=== PATIENT | female | born 1970 | race Caucasian/White ===

== ENCOUNTER 2017-06-14 14:09 | Emergency (ER) | payer OTHER ==
--- NOTE | 2017-06-14 15:55 | EDPHY ---
H & P Stated Complaint: hx PNA on zithromax increasing dyspnea hurts in chest with breathing Time Seen by Provider: 06/14/17 15:53 HPI/ROS: HPI: This is a 47-year-old female who presents with Chief Complaint: hx PNA on Zithromax increasing dyspnea hurts in chest with breathing Location: chest Quality: Congestion Duration: 2 weeks Signs and Symptoms: no shortness of breath at rest, no shortness of breath on exertion, + cough, no chest pain, no palpitations, no lower extremity edema, no wheezing, no orthopnea, no paroxysmal nocturnal dyspnea, no fever, no injury/ trauma, no hemoptysis, no carpal pedal spasms Timing: Worsening Severity: Moderate Context: Patient is generally healthy, no history of lung disease, presents with complaints of chest congestion that has been worsening over the last 2 weeks. She was seen by her primary care provider on June 02; diagnosed with bronchitis and given a Z-Antonio. On the day she had no improvement and return to her primary care provider on June 08. At that time they did blood work that showed community-acquired pneumonia. Patient was again started on azithromycin this time a longer course. She reports that the cough is no longer productive but she does have some discomfort with coughing episodes accompanied by fatigue. She denies any fever/lower extremity edema/neck stiffness/sinus congestion/headache/body aches. Patient reports that her travel to [facility] approximately 3 weeks prior to her getting sick and had a similar illness. She reports that her right lower chest feels heavy; nonradiating in nature and worsened with a deep breath or coughing episodes. LMP 2-3 weeks. Modifying Factors: See above Comment: ROS: see HPI Constitutional: No fever, no chills, no weight loss Eyes: No blurred vision Respiratory: No shortness of breath, no cough Cardiovascular: No chest pain, no palpitations, no lower extremity edema Gastrointestinal: No nausea, no vomiting, no diarrhea Genitourinary: No dysuria Extremities: No myalgias Neurologic: No weakness, no numbness Skin: No rashes Hematologic: No bruising, no bleeding MEDICAL/SURGICAL/SOCIAL HISTORY: Medical/surgical history: LUMBAR MICRODISCECTOMY L4-5 ?R ARM TENDONITIS, OCCASIONAL "LAZY EYE", NEW AFIB 05/20 ?, ENDOMETRIOSIS SURG, SINUS SURG, VAG SURG Surgical history: Denies Social history: . CONSTITUTIONAL: Well-developed, well-nourished middle-aged white female, at bedside, awake and alert, no obvious distress HEENT: Atraumatic and normocephalic, PERRL, EOMI. Tympanic membranes clear. Oropharynx clear, no exudate and moist pink mucosa. Airway patent. No lymphadenopathy. No meningismus. Cardiovascular: Normal S1/S2, regular rate, regular rhythm, without murmur rub or gallop. PULMONARY/CHEST: Symmetrical and nontender. Clear to auscultation bilaterally. Good air movement. No accessory muscle usage. ABDOMEN: Soft, nondistended, nontender, no rebound, no guarding, no peritoneal signs, no masses or organomegaly. No CVAT. EXTREMITIES: 2/2 pulses, strength 5/5, no deformities, no clubbing, no cyanosis or edema. Negative Homans side. No palpable cords. NEUROLOGICAL: no focal neuro deficits. GCS 15. SKIN: Warm and dry, no erythema. no rash. Good capillary refill. Source: Patient Exam Limitations: No limitations - Personal History LMP (Females 10-55): 22-28 Days Ago Current Tetanus/Diphtheria Vaccine: Yes - Medical/Surgical History Hx Asthma: No Hx Chronic Respiratory Disease: No Hx Diabetes: No Hx Cardiac Disease: No Hx Renal Disease: No Hx Cirrhosis: No Hx Alcoholism: No Hx HIV/AIDS: No Hx Splenectomy or Spleen Trauma: No Other PMH: LUMBAR MICRODISCECTOMY L4-5. ?R ARM TENDONITIS, OCCAS "LAZY EYE", NEW AFIB / ?, ENDOMETRIOSIS SURG, SINUS SURG, VAG SURG - Social History Smoking Status: Never smoked Constitutional: Initial Vital Signs Temperature (C) 36.7 C 06/14/17 14:22 Heart Rate 65 06/14/17 14:22 Respiratory Rate 18 06/14/17 14:22 Blood Pressure 137/80 H 06/14/17 14:22 O2 Sat (%) 100 06/14/17 14:22 O2 Delivery Mode Room Air Allergies/Adverse Reactions: aspirin Allergy (Verified 06/14/17 14:21) NSAIDS (Non-Steroidal Anti-Inflamma Allergy (Verified 06/14/17 14:21) Home Medications: Medication Instructions Recorded Azithromycin 06/14/17 levOFLOXACIN [levAQUIN (*)] 750 mg PO DAILY #5 tab 06/14/17 predniSONE [predniSONE TAPER] 10 mg PO DAILY 6 Days ea 06/14/17 Medical Decision Making - Diagnostics Imaging Results: Imaging Impressions Chest X-Ray 06/14/17 16:14 Impression: Normal. If there is progression of the patient's symptoms, consider short-term repeat chest radiography. ED Course/Re-evaluation: Labs, chest x-ray, oral medications ordered Vital signs reviewed upon arrival and stable. No systemic signs. Wells criteria is low for pulmonary embolism. Will add D-dimer to laboratory findings. 1647: Chest x-ray reviewed via PACs and shows no opacity, no effusion, no pneumothorax. + bronchitis changes noted 1720: Labs reviewed and grossly unremarkable including no signs of pulmonary embolism/ACS Will treat as bacterial bronchitis. Decision to stop azithromycin and start Levaquin. Also add steroid taper. This patient was seen under the supervision of my secondary supervising physician. I evaluated care for this patient independently. Differential Diagnosis: Shortness of breath including but not limited to pulmonary infectious process, asthma, pulmonary embolus and congestive heart failure. - Data Points Laboratory Results: Laboratory Results 06/14/17 16:40 06/14/17 16:40 06/14/17 06/14/17 06/14/17 16:40 16:40 16:40 WBC 8.11 10^3/uL 10^3/uL (3.80-9.50) RBC 4.35 10^6/uL 10^6/uL (4.18-5.33) Hgb 14.3 g/dL g/dL (12.6-16.3) Hct 41.5 % % (38.0-47.0) MCV 95.4 fL fL (81.5-99.8) MCH 32.9 pg pg (27.9-34.1) MCHC 34.5 g/dL g/dL (32.4-36.7) RDW 12.2 % % (11.5-15.2) Plt Count 231 10^3/uL 10^3/uL (150-400) MPV 10.1 fL fL (8.7-11.7) Neut % (Auto) 63.9 % % (39.3-74.2) Lymph % (Auto) 24.3 % % (15.0-45.0) Brantley % (Auto) 6.5 % % (4.5-13.0) Eos % (Auto) 4.2 % % (0.6-7.6) Baso % (Auto) 0.7 % % (0.3-1.7) Nucleat RBC Rel Count 0.0 % % (0.0-0.2) Absolute Neuts (auto) 5.18 10^3/uL 10^3/uL (1.70-6.50) Absolute Lymphs (auto) 1.97 10^3/uL 10^3/uL (1.00-3.00) Absolute Monos (auto) 0.53 10^3/uL 10^3/uL (0.30-0.80) Absolute Eos (auto) 0.34 10^3/uL 10^3/uL (0.03-0.40) Absolute Basos (auto) 0.06 10^3/uL 10^3/uL (0.02-0.10) Absolute Nucleated RBC 0.00 10^3/uL 10^3/uL (0-0.01) Immature Gran % 0.4 % % (0.0-1.1) Immature Gran # 0.03 10^3/uL 10^3/uL (0.00-0.10) D-Dimer < 0.27 ug/mLFEU ug/mLFEU (0.00-0.50) Sodium 140 mEq/L mEq/L (135-145) Potassium 4.2 mEq/L mEq/L (3.5-5.2) Chloride 103 mEq/L mEq/L (97-110) Carbon Dioxide 24 mEq/l mEq/l (22-31) Anion Gap 13 mEq/L mEq/L (8-16) BUN 11 mg/dL mg/dL (7-23) Creatinine 0.7 mg/dL mg/dL (0.6-1.0) Estimated GFR > 60 Glucose 83 mg/dL mg/dL (70-100) Calcium 9.7 mg/dL mg/dL (8.5-10.4) Troponin I < 0.012 ng/mL ng/mL (0.000-0.034) Medications Given: Discontinued Medications Levofloxacin (Levaquin) 750 mg PO EDNOW ONE PRN Reason: Protocol Stop: 06/14/17 17:22 Last Admin: 06/14/17 17:42 Dose: 750 mg Prednisone (Prednisone) 60 mg PO EDNOW ONE Stop: 06/14/17 17:22 Last Admin: 06/14/17 17:42 Dose: 60 mg Departure - Departure Disposition: Home, Routine, Self-Care Clinical Impression: Acute bacterial bronchitis Condition: Good Instructions: Acute Bronchitis (ED) Additional Instructions: Chest x-ray today does not show an opacity or signs of pneumonia. Take Tylenol 650 mg every 4 hours and/or Ibuprofen 600 mg every 8 hours with food as needed for pain. Stop taking Azithromycin and start taking Levaquin 750 mg daily x5 days. Complete steroid taper as directed. Return to the ER immediately if you experience fevers/chills, shortness of breath, abdominal pain, inability to tolerate oral intake, or any other symptoms that concern you. Prescriptions: levOFLOXACIN [levAQUIN (*)] 750 mg PO DAILY #5 tab predniSONE [predniSONE TAPER] 10 mg PO DAILY 6 Days ea
[2017-06-14 16:53] LABS: PLATELET COUNT 231 10^3/uL (150-400)
[2017-06-14] MEDS ORDERED: predniSONE 20 MG TAB PO ONE (17:21)
[2017-06-14 17:49] VITALS: BP 129/70
== END 2017-06-14 17:49 | disposition home or self-care (01) ==
DX: J02.8 Acute pharyngitis due to other specified organisms (principal); B96.89 Other specified bacterial agents as the cause of diseases classified elsewhere
CPT/HCPCS: J7512